=== PATIENT | female | born 1990 | race Caucasian/White ===

== ENCOUNTER 2023-07-17 17:55 | Emergency (ER) | payer BC, SELFPAY ==
[2023-07-17 18:13] VITALS: BP 138/94; PULSE 81; RESP 18; TEMP 36.2; O2SAT 100
[2023-07-17 18:21] VITALS: BP 138/94; PULSE 81; RESP 18; TEMP 36.2; O2SAT 100
--- NOTE | 2023-07-17 18:30 | ED.URI ---
HPI - URI/Sore Throat General Chief Complaint: Upper Respiratory Infection Stated Complaint: sorethroat,congestion Time Seen by Provider: 07/17/23 18:17 Source: patient and RN notes reviewed Mode of arrival: ambulatory Limitations: no limitations History of Present Illness HPI Narrative: Patient presents today with a 2 day history of sore throat, nasal congestion, and sweats. Denies fever, cough. Currently rates her pain 7/10, which increases with swallowing. She has been taking ibuprofen with little relief. Reports multiple sick contacts at work. Related Data Home Medications Medication Instructions Recorded Confirmed buspirone 15 mg tablet 15 mg BID 07/17/23 07/17/23 venlafaxine 75 mg capsule,extended 75 mg PO AC 07/17/23 07/17/23 release 24 hr Allergies Allergy/AdvReac Type Severity Reaction Status Date / Time Sulfa (Sulfonamide Allergy Unknown Verified 07/17/23 18:18 Antibiotics) Review of Systems Review of Systems: CONSTITUTIONAL: Denies body aches, fever, chills.+ sweats EYES: Denies visual changes, redness, or discharge. ENT: Denies rhinorrhea, or otalgia.+ sore throat, congestion CARDIOVASCULAR: Denies chest pain, palpitations, or edema. RESPIRATORY: Denies cough or dyspnea. GASTROINTESTINAL: Denies abdominal pain, nausea, vomiting, or diarrhea. GENITOURINARY: Denies dysuria or hematuria. SKIN: Denies rash, itching, or wounds. MUSCULOSKELETAL: Denies back pain, joint pain, or myalgia. NEUROLOGIC: Denies headache, numbness, tingling, or weakness. PSYCH: Denies depression or anxiety. PMFSH Comments At time of signature, I have reviewed and agree with nursing past medical, surgical, social and family history unless otherwise noted. Please see nursing chart for further information. There is no relevant family history pertinent to the presenting complaint Exam Narrative: GENERAL: Well-appearing, well-nourished, and in no acute distress. HEAD: Normocephalic, atraumatic. EYES: EOMI. No redness or drainage. Conjunctivae normal. ENT: Mucous membranes pink and moist. Nares mildly congested. No rhinorrhea. TMs normal bilaterally. Throat mildly erythematous and edematous. No exudate. Uvula midline. NECK: Normal AROM. Supple. No lymphadenopathy. CHEST: No respiratory distress. Clear to auscultation. HEART: Regular rate and rhythm. No murmur appreciated. Normal peripheral pulses. EXTREMITIES: Normal range of motion. No edema. SKIN: Warm, dry, no rash. Capillary refill normal. Normal skin turgor. NEURO: No focal deficits. Alert and oriented x3. Gait steady. PSYCH: Normal affect. No signs of depression or anxiety. Course Course Level of Care: Express Care Visit Vital Signs Vital signs: Vital Signs Temperature 97.1 F L 07/17/23 18:13 Pulse Rate 81 07/17/23 18:13 Respiratory Rate 18 07/17/23 18:13 Blood Pressure 138/94 H 07/17/23 18:13 Pulse Oximetry 100 07/17/23 18:13 Oxygen Delivery Room Air 07/17/23 18:13 Temperature 97.1 F L 07/17/23 18:21 Pulse Rate 81 07/17/23 18:21 Respiratory Rate 18 07/17/23 18:21 Blood Pressure 138/94 H 07/17/23 18:21 Pulse Oximetry 100 07/17/23 18:21 Oxygen Delivery Room Air 07/17/23 18:21 Reviewed MDM - URI/Sore Throat MDM Narrative Medical decision making narrative: Rapid strep negative. Culture pending. Symptoms likely viral in etiology. No further testing indicated. No prescription medications indicated at this time. Anticipatory guidance given. Differential Diagnosis Differential diagnosis: Likely upper respiratory infection, viral infection, pharyngitis and other (Strep throat) Lab Data Attestation: I reviewed the patient's lab results. Labs: Strep Screen Presumptive Negative *(Reference Range: Negative)* Critical Care Time Critical Care Time Critical Care Time: No Discharge Plan Discharge Clinical Impression: Pharyngitis
== END 2023-07-17 18:54 | disposition home or self-care (01) ==
PROVIDERS: Emergency Provider Nurse Practitioner
DX: J02.9 Acute pharyngitis, unspecified (principal); F41.9 Anxiety disorder, unspecified; F43.10 Post-traumatic stress disorder, unspecified
CPT/HCPCS: 87081; 87880; 99213; G0463